=== PATIENT | female | born 1965 | race Caucasian/White ===

== ENCOUNTER 2021-07-07 09:47 | Outpatient (CLI) | payer BC, MEDICARE | END 2021-07-07 09:48 | disposition home or self-care (01) | LOC: CSHWCC 09:47 | PROVIDERS: ATTEND Nurse Practitioner Family | DX: T22.012D Burn of unspecified degree of left forearm, subsequent encounter (principal) | CPT/HCPCS: 99203; G0463 ==

== ENCOUNTER 2021-07-14 15:03 | Outpatient (CLI) | payer BC, MEDICARE | END 2021-07-14 15:04 | disposition home or self-care (01) | LOC: CSHWCC 15:03 | PROVIDERS: ATTEND Nurse Practitioner Family | DX: T80.89XD Other complications following infusion, transfusion and therapeutic injection, subsequent encounter (principal) | CPT/HCPCS: 99212; G0463 ==

== ENCOUNTER 2022-04-24 15:02 | Inpatient (IN) | payer BC, MEDICARE ==
[2022-04-24] MEDS ORDERED: Naloxone HCl 0.4 mg/ml Vial ONE (15:08)
[2022-04-24] MEDS ORDERED: Propofol 1,000 MG/100 ML VIAL IV ONE (15:25)
[2022-04-24 16:04] LABS: #Eosinphils 0.1 10x3/uL (0.0-0.5); #Monocytes 0.6 10x3/uL (0.0-1.1); #Neutrophils 7.6 10x3/uL (1.5-8.4); %Basophils 0.3 % (0.0-2.0); %Eosinophils 1.1 % (0.0-6.0); %Lymphocytes 13.6 % (18.0-47.0); %Monocytes 5.7 % (0.0-10.0); %Neutrophils 78.5 % (40.0-75.0); Hemoglobin 12.1 g/dL (12.0-15.5); Mean Corpuscular HGB CONC 33.3 g/dL (32.0-36.0); Mean Corpuscular Hemoglobin 33.2 pg (27.0-33.0); Mean Corpuscular Volume 99.7 fl (81.6-98.3); Platelet Count 215 10x3/uL (150-450); RBC Distribution Width 14.6 % (11.5-14.5); Red Blood Cell (RBC) Count 3.64 10x6/uL (3.90-5.03); White Blood Cell (WBC) Count 9.7 10x3/uL (3.5-10.5)
[2022-04-24 16:11] LABS: BHCG - Serum Negative (NEGATIVE); Pregs Control Background? CLEAR/WHITE (CLR/WHITE); Pregs Control Bar Appear? YES (CONTROL BAR)
[2022-04-24 16:18] LABS: ALT (SGPT) 56 U/L (8-55); AST (SGOT) 41 U/L (5-34); Albumin 3.9 g/dL (3.5-5.0); Alkaline Phosphatase 93 U/L (40-110); Anion Gap 16 mmol/L (10-20); BUN (Urea Nitrogen) 15 mg/dL (9.8-20.1); Bilirubin, Total 0.3 mg/dL (0.2-1.2); Calc. Creatinine Clearance 0 mL/min (70-130); Calcium 7.1 mg/dL (7.8-10.44); Carbon Dioxide 21 mmol/L (22-29); Chloride 106 mmol/L (98-107); Estimated GFR 92; Globulin 2.5 g/dL (2.4-3.5); Glucose 155 mg/dL (70-105); Potassium 3.7 mmol/L (3.5-5.1); Protein, Total 6.4 g/dL (6.0-8.3); Sodium 139 mmol/L (136-145)
[2022-04-24 16:18] LABS: Bilirubin Neg (Negative); Blood, Urine Negative (Negative); Clarity Clear (Clear); Glucose, Urine (Dipstick) Normal (Negative); Ketone, Urine Negative (Negative); Leukocyte Negative (Negative); Nitrite Negative (Negative); Protein, Urine (Dipstick) 15 mg/dl (Neg-Trace); Urobilinogen Normal mg/dL (Less than 2)
[2022-04-24 16:21] LABS: Base Excess (BEa) -0.3 mEq/L (-2.0 to +3.0); CO2 Tension 43.2 mmHg (35.0-45.0); Carboxyhemoglobin (COHb) 0.1 gm% (0.0-3.0); Hemoglobin (Hb) 13.3 g/dL (12.0-16.0); O2 Tension (PaO2), arterial 190.2 mmHg (80.0-100.0); Potassium - ABG Lab 3.8 mmol/L (3.70-5.30); Puncture Site RRA; pH, Arterial 7.38 (7.35-7.45)
[2022-04-24 16:27] LABS: Amphetamine Not Detected (NotDetected); Barbiturates Screen Not Detected (NotDetected); Benzodiazepine Screen Detected (NotDetected); Cocaine Metabolite Screen Not Detected (NotDetected); Methadone Not Detected (NotDetected); Methamphetamine Not Detected (NotDetected); Opiate Screen Detected (NotDetected); Oxycodone Screen Detected (NotDetected); Phencyclidine (PCP) Not Detected (NotDetected); THC/Cannabinoid Screen Not Detected (NotDetected); Tricyclic Screen Not Detected (NotDetected)
[2022-04-24 17:04] LABS: SARS-CoV-2 NAA Rapid Test Not Detected (NotDetected)
[2022-04-24 17:21] LABS: Alcohol Less than 10 mg/dL (Less than 10); Salicylate Less than 8.0 mg/dL (15.0-30.0)
[2022-04-24] MEDS ORDERED: Morphine 4 MG/ML VIAL SLOW IVP PRN (18:06)
[2022-04-24] MEDS: FENTANYL 2,000MCG/100-0.9%NACL 100 ML IVPB SCH (18:09)
[2022-04-24] MEDS ORDERED: DISCONTINUE PREVIOUS NARCOTIC PAIN MEDICATIONS AND BENZODIAZEPINES FS SCH (18:15)
[2022-04-24] MEDS ORDERED: Morphine 2 MG/ML VIAL SLOW IVP PRN (18:15)
[2022-04-24] MEDS ORDERED: Fentanyl BOLUS 250 ML IVPB PRN (18:15)
[2022-04-24] MEDS ORDERED: Propofol BOLUS 1,000 MG/100 ML VIAL IV PRN (18:15)
[2022-04-24] MEDS: Lorazepam 2 MG/ML VIAL SLOW IVP PRN (18:17)
[2022-04-24] MEDS: Propofol 1,000 MG/100 ML VIAL IV PRN ×2 (19:34→22:22)
[2022-04-24] MEDS ORDERED: Acetylcysteine 20% (200mg/mL) 15,000 MG in Dextrose 5% in Water 125 ML IV SCH (21:00)
[2022-04-24] MEDS ORDERED: Magnesium 2 GM/50 ML(in water) 2 GM in Premix Bag 1 BAG IVPB SCH (21:00)
[2022-04-24] MEDS ORDERED: Acetylcysteine 20% (200mg/mL) 5,000 MG in Dextrose 5% in Water 475 ML IV SCH (22:00)
[2022-04-25] MEDS: Propofol 1,000 MG/100 ML VIAL IV PRN ×7 (01:20→22:09)
[2022-04-25] MEDS: FENTANYL 2,000MCG/100-0.9%NACL 100 ML IVPB SCH ×3 (01:56→21:21)
[2022-04-25] MEDS: Lorazepam 2 MG/ML VIAL SLOW IVP PRN (01:56)
[2022-04-25] MEDS ORDERED: Acetylcysteine 20% (200mg/mL) 10,000 MG in Dextrose 5% in Water 950 ML IV SCH (02:00)
[2022-04-25 04:32] LABS: #Eosinphils 0.1 10x3/uL (0.0-0.5); #Monocytes 0.4 10x3/uL (0.0-1.1); #Neutrophils 4.3 10x3/uL (1.5-8.4); %Basophils 0.5 % (0.0-2.0); %Eosinophils 1.6 % (0.0-6.0); %Lymphocytes 21.5 % (18.0-47.0); %Monocytes 6.6 % (0.0-10.0); %Neutrophils 69.5 % (40.0-75.0); Hemoglobin 11.4 g/dL (12.0-15.5); Mean Corpuscular HGB CONC 33.2 g/dL (32.0-36.0); Mean Corpuscular Hemoglobin 32.8 pg (27.0-33.0); Mean Corpuscular Volume 98.6 fl (81.6-98.3); Mean Platelet Volume 11.5 fl (7.4-10.4); Platelet Count 203 10x3/uL (150-450); RBC Distribution Width 14.6 % (11.5-14.5); Red Blood Cell (RBC) Count 3.48 10x6/uL (3.90-5.03); White Blood Cell (WBC) Count 6.2 10x3/uL (3.5-10.5)
[2022-04-25 04:57] LABS: ALT (SGPT) 52 U/L (8-55); AST (SGOT) 41 U/L (5-34); Albumin 3.4 g/dL (3.5-5.0); Alkaline Phosphatase 79 U/L (40-110); Anion Gap 14 mmol/L (10-20); BUN (Urea Nitrogen) 10 mg/dL (9.8-20.1); Bilirubin, Total 0.4 mg/dL (0.2-1.2); Calc. Creatinine Clearance 147 mL/min (70-130); Carbon Dioxide 23 mmol/L (22-29); Chloride 106 mmol/L (98-107); Estimated GFR 101; Globulin 2.2 g/dL (2.4-3.5); Glucose 99 mg/dL (70-105); Potassium 3.7 mmol/L (3.5-5.1); Protein, Total 5.6 g/dL (6.0-8.3); Sodium 139 mmol/L (136-145)
[2022-04-25 05:07] LABS: Calcium 6.5 mg/dL (7.8-10.44)
[2022-04-25] MEDS: Calcium Gluconate 4.6 MEQ in Sodium Chloride 0.9% 100 ML IVPB SCH ×2 (05:25→06:34)
[2022-04-25] MEDS ORDERED: Rocuronium Bromide 10 MG/ML (10ML VIAL) ONE (06:00)
[2022-04-25] MEDS ORDERED: Enoxaparin Sodium 40 MG/0.4 ML SYRINGE SC SCH (09:00)
[2022-04-25] MEDS: Dexmedetomidine In 0.9 % NaCl 400 MCG in Premix Bag 1 BAG IVPB SCH ×3 (15:09→21:21)
[2022-04-25 16:49] LABS: ALT (SGPT) 48 U/L (8-55); AST (SGOT) 38 U/L (5-34); Acetaminophen Less than 10.0 mcg/mL (10.0-30.0); Albumin 3.3 g/dL (3.5-5.0); Alkaline Phosphatase 86 U/L (40-110); Anion Gap 13 mmol/L (10-20); BUN (Urea Nitrogen) 6 mg/dL (9.8-20.1); Bilirubin, Direct 0.2 mg/dL (0.1-0.3); Bilirubin, Total 0.5 mg/dL (0.2-1.2); Calc. Creatinine Clearance 154 mL/min (70-130); Calcium 7.1 mg/dL (7.8-10.44); Carbon Dioxide 24 mmol/L (22-29); Chloride 108 mmol/L (98-107); Estimated GFR 103; Globulin 2.2 g/dL (2.4-3.5); Glucose 103 mg/dL (70-105); Potassium 3.7 mmol/L (3.5-5.1); Protein, Total 5.5 g/dL (6.0-8.3); Sodium 141 mmol/L (136-145)
[2022-04-25] MEDS: Rivaroxaban 15 MG TAB PO SCH (21:21)
[2022-04-26] MEDS: Dexmedetomidine In 0.9 % NaCl 400 MCG in Premix Bag 1 BAG IVPB SCH ×3 (01:09→07:14)
[2022-04-26] MEDS: Propofol 1,000 MG/100 ML VIAL IV PRN (02:42)
[2022-04-26 04:12] LABS: ALT (SGPT) 48 U/L (8-55); AST (SGOT) 40 U/L (5-34); Albumin 3.4 g/dL (3.5-5.0); Alkaline Phosphatase 93 U/L (40-110); Anion Gap 14 mmol/L (10-20); BUN (Urea Nitrogen) 7 mg/dL (9.8-20.1); Bilirubin, Total 0.5 mg/dL (0.2-1.2); Calc. Creatinine Clearance 148 mL/min (70-130); Carbon Dioxide 22 mmol/L (22-29); Chloride 107 mmol/L (98-107); Estimated GFR 99; Globulin 2.5 g/dL (2.4-3.5); Glucose 96 mg/dL (70-105); Magnesium 1.8 mg/dL (1.6-2.6); Phosphorus 5.1 mg/dL (2.3-4.7); Potassium 4.2 mmol/L (3.5-5.1); Protein, Total 5.9 g/dL (6.0-8.3); Sodium 139 mmol/L (136-145)
[2022-04-26 04:13] LABS: #Eosinphils 0.1 10x3/uL (0.0-0.5); #Monocytes 0.6 10x3/uL (0.0-1.1); %Basophils 0.4 % (0.0-2.0); %Eosinophils 2.1 % (0.0-6.0); %Lymphocytes 28.1 % (18.0-47.0); %Monocytes 8.7 % (0.0-10.0); %Neutrophils 60.4 % (40.0-75.0); Hemoglobin 12.3 g/dL (12.0-15.5); Mean Corpuscular HGB CONC 33.5 g/dL (32.0-36.0); Mean Corpuscular Hemoglobin 32.5 pg (27.0-33.0); Mean Corpuscular Volume 97.1 fl (81.6-98.3); Mean Platelet Volume 11.9 fl (7.4-10.4); Platelet Count 182 10x3/uL (150-450); RBC Distribution Width 14.6 % (11.5-14.5); Red Blood Cell (RBC) Count 3.78 10x6/uL (3.90-5.03); White Blood Cell (WBC) Count 6.7 10x3/uL (3.5-10.5)
[2022-04-26] MEDS: Levothyroxine Sodium 75 MCG TAB PO SCH (06:07)
[2022-04-26] MEDS: Rivaroxaban 15 MG TAB PO SCH ×2 (07:58→20:27)
[2022-04-26] MEDS: Pantoprazole 40 MG VIAL IVP SCH (07:59)
[2022-04-26] MEDS ORDERED: LINACLOTIDE 72 MCG PO PRN (16:11)
[2022-04-26] MEDS: Lorazepam 2 MG/ML VIAL SLOW IVP PRN (20:27)
[2022-04-26] MEDS ORDERED: Calcium Carbonate 500 MG ChewTAB PO SCH (21:00)
[2022-04-27 06:25] LABS: #Eosinphils 0.1 10x3/uL (0.0-0.5); #Monocytes 0.4 10x3/uL (0.0-1.1); %Basophils 0.3 % (0.0-2.0); %Eosinophils 1.5 % (0.0-6.0); %Lymphocytes 23.8 % (18.0-47.0); %Monocytes 6.9 % (0.0-10.0); %Neutrophils 67.2 % (40.0-75.0); Hemoglobin 12.5 g/dL (12.0-15.5); Mean Corpuscular HGB CONC 31.9 g/dL (32.0-36.0); Mean Corpuscular Hemoglobin 32.6 pg (27.0-33.0); Mean Corpuscular Volume 102.1 fl (81.6-98.3); Mean Platelet Volume 11.8 fl (7.4-10.4); Platelet Count 204 10x3/uL (150-450); RBC Distribution Width 14.4 % (11.5-14.5); Red Blood Cell (RBC) Count 3.84 10x6/uL (3.90-5.03); White Blood Cell (WBC) Count 5.9 10x3/uL (3.5-10.5)
[2022-04-27 06:56] LABS: ALT (SGPT) 43 U/L (8-55); AST (SGOT) 41 U/L (5-34); Albumin 3.6 g/dL (3.5-5.0); Alkaline Phosphatase 112 U/L (40-110); Anion Gap 20 mmol/L (10-20); BUN (Urea Nitrogen) 15 mg/dL (9.8-20.1); Bilirubin, Total 0.8 mg/dL (0.2-1.2); Calc. Creatinine Clearance 147 mL/min (70-130); Calcium 7.5 mg/dL (7.8-10.44); Carbon Dioxide 22 mmol/L (22-29); Chloride 105 mmol/L (98-107); Estimated GFR 101; Globulin 2.7 g/dL (2.4-3.5); Glucose 57 mg/dL (70-105); Magnesium 1.8 mg/dL (1.6-2.6); Phosphorus 5.8 mg/dL (2.3-4.7); Potassium 4.8 mmol/L (3.5-5.1); Protein, Total 6.3 g/dL (6.0-8.3); Sodium 142 mmol/L (136-145)
[2022-04-27] MEDS: Levothyroxine Sodium 75 MCG TAB PO SCH (07:27)
[2022-04-27] MEDS: Rivaroxaban 15 MG TAB PO SCH ×2 (10:06→21:48)
[2022-04-27] MEDS: Citalopram 20 MG TAB PO SCH (10:06)
[2022-04-27] MEDS: Pantoprazole 40 MG VIAL IVP SCH (10:06)
[2022-04-28] MEDS: Levothyroxine Sodium 75 MCG TAB PO SCH (08:37)
[2022-04-28] MEDS: Rivaroxaban 15 MG TAB PO SCH ×2 (08:37→22:22)
[2022-04-28] MEDS: Citalopram 20 MG TAB PO SCH (08:37)
[2022-04-28 11:40] VITALS: BMI 40.1
[2022-04-28] MEDS: Sodium Chloride 0.9% 1,000 ML IV SCH (16:10)
[2022-04-28 16:16] LABS: #Eosinphils 0.1 10x3/uL (0.0-0.5); #Monocytes 0.4 10x3/uL (0.0-1.1); #Neutrophils 3.7 10x3/uL (1.5-8.4); %Basophils 0.4 % (0.0-2.0); %Eosinophils 1.6 % (0.0-6.0); %Lymphocytes 18.4 % (18.0-47.0); %Monocytes 7.4 % (0.0-10.0); Hemoglobin 13.7 g/dL (12.0-15.5); Mean Corpuscular HGB CONC 33.4 g/dL (32.0-36.0); Mean Corpuscular Hemoglobin 32.9 pg (27.0-33.0); Mean Corpuscular Volume 98.3 fl (81.6-98.3); Mean Platelet Volume 11.4 fl (7.4-10.4); Platelet Count 203 10x3/uL (150-450); RBC Distribution Width 13.8 % (11.5-14.5); Red Blood Cell (RBC) Count 4.17 10x6/uL (3.90-5.03); White Blood Cell (WBC) Count 5.1 10x3/uL (3.5-10.5)
[2022-04-28 16:32] LABS: ALT (SGPT) 35 U/L (8-55); AST (SGOT) 31 U/L (5-34); Albumin 3.9 g/dL (3.5-5.0); Alkaline Phosphatase 105 U/L (40-110); Anion Gap 16 mmol/L (10-20); BUN (Urea Nitrogen) 9 mg/dL (9.8-20.1); Bilirubin, Total 0.5 mg/dL (0.2-1.2); Calc. Creatinine Clearance 174 mL/min (70-130); Calcium 7.4 mg/dL (7.8-10.44); Carbon Dioxide 23 mmol/L (22-29); Chloride 106 mmol/L (98-107); Estimated GFR 107; Globulin 2.8 g/dL (2.4-3.5); Glucose 93 mg/dL (70-105); Potassium 3.8 mmol/L (3.5-5.1); Protein, Total 6.7 g/dL (6.0-8.3); Sodium 141 mmol/L (136-145)
[2022-04-28] MEDS ORDERED: rOPINIRole HCl 1 MG TAB PO SCH (22:15)
[2022-04-29] MEDS: Sodium Chloride 0.9% 1,000 ML IV SCH ×2 (02:56→08:36)
[2022-04-29] MEDS: Levothyroxine Sodium 75 MCG TAB PO SCH (06:29)
[2022-04-29] MEDS: Citalopram 20 MG TAB PO SCH (08:35)
[2022-04-29] MEDS: Rivaroxaban 15 MG TAB PO SCH ×3 (08:35→21:33)
[2022-04-30] MEDS: Sodium Chloride 0.9% 1,000 ML IV SCH ×3 (05:09→14:58)
[2022-04-30] MEDS: Levothyroxine Sodium 75 MCG TAB PO SCH (07:04)
[2022-04-30] MEDS: Rivaroxaban 15 MG TAB PO SCH (08:58)
[2022-04-30] MEDS: Citalopram 20 MG TAB PO SCH (08:58)
[2022-04-30] MEDS ORDERED: Pramipexole Di-HCl 0.25 MG TAB PO SCH ×2 (13:00→21:00)
[2022-04-30 16:11] VITALS: BP 110/64; TEMP 97.5
== END 2022-04-30 18:14 | DRG 917 ==
LOC: SUATTDRO 15:02 → CSHERS 15:02 → CSHICU 17:09 → CSHTELE 04-26 17:31
PROVIDERS: ADMIT Internal Medicine; ATTEND Internal Medicine
PROC: 0BH17EZ Insertion of Endotracheal Airway into Trachea, Via Natural or Artificial Opening (ICD-10-PCS; principal; 2022-04-24)
PROC: 5A1945Z Respiratory Ventilation, 24-96 Consecutive Hours (ICD-10-PCS; 2022-04-24)
PROC: 0T9B70Z Drainage of Bladder with Drainage Device, Via Natural or Artificial Opening (ICD-10-PCS; 2022-04-24)
DX: T39.1X2A Poisoning by 4-Aminophenol derivatives, intentional self-harm, initial encounter (principal); J96.01 Acute respiratory failure with hypoxia; M32.9 Systemic lupus erythematosus, unspecified; T14.91XA Suicide attempt, initial encounter; E03.9 Hypothyroidism, unspecified; G62.9 Polyneuropathy, unspecified; Z20.822 Contact with and (suspected) exposure to COVID-19; F60.3 Borderline personality disorder; F31.9 Bipolar disorder, unspecified; Z88.6 Allergy status to analgesic agent; Z88.1 Allergy status to other antibiotic agents; Z88.8 Allergy status to other drugs, medicaments and biological substances; Z91.09 Other allergy status, other than to drugs and biological substances; Z79.899 Other long term (current) drug therapy; Z79.890 Hormone replacement therapy; Z90.49 Acquired absence of other specified parts of digestive tract; Z98.84 Bariatric surgery status; Z91.51 Personal history of suicidal behavior; Z78.1 Physical restraint status; Z87.442 Personal history of urinary calculi; Z86.718 Personal history of other venous thrombosis and embolism; Z86.711 Personal history of pulmonary embolism
CPT/HCPCS: 31500; 36415; 36416; 36600; 51702; 70450; 71045; 80053; 80143; 80306; 80307; 81003; 82805; 83605; 83735; 84100; 84146; 84443; 84484; 84703; 85025; 86850; 86900; 86901; 87040; 87086; 93005; 93010; 94002; 94003; 94760; 94762; 96374; C9113; J0132; J0610; J1650; J2060; J2310; J2704; J3475; J3490; J7070

== ENCOUNTER 2024-03-08 03:59 | Emergency (ER) | payer BC, MEDICARE, OTHER ==
[2024-03-08] MEDS ORDERED: Magnesium 2 GM/50 ML BAG (IN WATER) ONE (04:07)
[2024-03-08] MEDS ORDERED: fentaNYL 50 mcg/mL 1 mL Vial ONE (04:07)
[2024-03-08] MEDS ORDERED: Ketorolac Tromethamine 30 MG (1 mL) VIAL ONE (04:10)
[2024-03-08] MEDS ORDERED: tiZANidine HCl 4 MG TAB PO SCH (04:30)
[2024-03-08 04:46] LABS: #Basophils 0.06 10x3/uL (0.0-0.2); #Eosinophils 0.16 10x3/uL (0.0-0.5); #Monocytes 0.62 10x3/uL (0.0-1.1); #Neutrophils 6.43 10x3/uL (1.5-8.4); %Basophils 0.6 % (0.0-2.0); %Eosinophils 1.6 % (0.0-6.0); %Lymphocytes 29.1 % (18.0-47.0); %Neutrophils 62.4 % (40.0-75.0); Hematocrit 45.7 % (34.9-44.5); Hemoglobin 15.1 g/dL (12.0-15.5); Mean Corpuscular Hemoglobin 32.9 pg (27.0-33.0); Mean Corpuscular Volume 99.6 fL (81.6-98.3); Mean Platelet Volume 11.5 fL (7.4-10.4); Platelet Count 292 10x3/uL (150-450); RBC Distribution Width 14.6 % (11.5-14.5); Red Blood Cell (RBC) Count 4.59 10x6/uL (3.90-5.03); White Blood Cell (WBC) Count 10.3 10x3/uL (3.5-10.5)
[2024-03-08 04:57] LABS: Actual Bicarbonate (HCO3v) 27.2 mEq/L (22-28); Analyzer IN Cardio CS ER; Base Excess 2.2 mEq/L (-2 - +2); Calcium, Ionized (venous) 0.86 mmol/L (1.16-1.32); Chloride (VBG) 96 mmol/L (98-106); Hematocrit-VBG 49 % (36.0-47.0); Hemoglobin (Hb) 16.5 g/dL (11.7-16.0); Potassium (VBG) 4.73 mmol/L (3.70-5.30); Puncture Site Other Site; RapidComm Collect By lab; Sodium 142 mmol/L (133-146); pH (venous) 7.413 (7.32-7.43)
[2024-03-08 05:00] LABS: ALT (SGPT) 54 U/L (8-55); AST (SGOT) 52 U/L (5-34); Albumin 4.2 g/dL (3.5-5.0); Alkaline Phosphatase 106 U/L (40-110); Anion Gap 24 mmol/L (10-20); BUN (Urea Nitrogen) 17 mg/dL (9.8-20.1); Bilirubin, Total 0.5 mg/dL (0.2-1.2); CK (CPK) 191 U/L (29-168); Calc. Creatinine Clearance 0 mL/min (70-130); Calcium 8.7 mg/dL (7.8-10.44); Carbon Dioxide 26 mmol/L (22-29); Chloride 97 mmol/L (98-107); Estimated GFR 51; Globulin 3.9 g/dL (2.4-3.5); Glucose 135 mg/dL (70-105); Protein, Total 8.1 g/dL (6.0-8.3); Sodium 142 mmol/L (136-145)
[2024-03-08] MEDS ORDERED: Calcium Gluc 4.6 MEQ/10 ML (100 MG/ML) ONE ×2 (05:05→05:06)
[2024-03-08] MEDS ORDERED: Cyclobenzaprine 10 MG TAB ONE (05:05)
== END 2024-03-08 05:49 | disposition home or self-care (01) ==
LOC: CSHERS 03:59
DX: E83.51 Hypocalcemia (principal); R25.2 Cramp and spasm; I10 Essential (primary) hypertension
CPT/HCPCS: 80053; 82550; 82805; 83735; 85025; 93005; 96374; 96375; J0612; J1885; J3010; J3475

== ENCOUNTER 2024-03-09 06:54 | Emergency (ER) | payer OTHER ==
[2024-03-09 07:22] LABS: #Basophils 0.03 10x3/uL (0.0-0.2); #Eosinophils 0.12 10x3/uL (0.0-0.5); #Monocytes 0.46 10x3/uL (0.0-1.1); #Neutrophils 5.14 10x3/uL (1.5-8.4); %Basophils 0.4 % (0.0-2.0); %Eosinophils 1.6 % (0.0-6.0); %Monocytes 6.1 % (0.0-10.0); %Neutrophils 68.4 % (40.0-75.0); Hematocrit 44.1 % (34.9-44.5); Hemoglobin 14.2 g/dL (12.0-15.5); Mean Corpuscular HGB CONC 32.2 g/dL (32.0-36.0); Mean Corpuscular Hemoglobin 32.4 pg (27.0-33.0); Mean Corpuscular Volume 100.7 fL (81.6-98.3); Mean Platelet Volume 11.4 fL (7.4-10.4); Platelet Count 266 10x3/uL (150-450); RBC Distribution Width 14.5 % (11.5-14.5); Red Blood Cell (RBC) Count 4.38 10x6/uL (3.90-5.03); White Blood Cell (WBC) Count 7.5 10x3/uL (3.5-10.5)
[2024-03-09] MEDS ORDERED: Acetaminophen 500 MG TAB ONE (07:32)
[2024-03-09] MEDS ORDERED: methylPREDNISolone Sod Succ/PF 125 MG/2 ML VIAL ONE (07:32)
[2024-03-09 07:36] LABS: ALT (SGPT) 45 U/L (8-55); AST (SGOT) 46 U/L (5-34); Alkaline Phosphatase 103 U/L (40-110); Anion Gap 20 mmol/L (10-20); BUN (Urea Nitrogen) 17 mg/dL (9.8-20.1); Bilirubin, Total 0.6 mg/dL (0.2-1.2); Calc. Creatinine Clearance 0 mL/min (70-130); Calcium 8.5 mg/dL (7.8-10.44); Carbon Dioxide 27 mmol/L (22-29); Chloride 100 mmol/L (98-107); Estimated GFR 74; Globulin 2.7 g/dL (2.4-3.5); Glucose 110 mg/dL (70-105); Potassium 4.5 mmol/L (3.5-5.1); Protein, Total 6.7 g/dL (6.0-8.3); Sodium 142 mmol/L (136-145); Troponin I Less than 0.010 ng/mL (< 0.028)
[2024-03-09] MEDS ORDERED: Ipratropium/Albuterol 3 ML NEB ONE (07:38)
[2024-03-09 07:46] LABS: Magnesium 2.3 mg/dL (1.6-2.6)
[2024-03-09 07:47] LABS: PTT 27.4 sec (22.0-33.0); Prothrombin Time 10.5 sec (9.5-12.1)
[2024-03-09] MEDS ORDERED: LevoFLOXacin 750 mg/D5W 150 ml Premix Bag ONE (08:09)
[2024-03-09] MEDS ORDERED: Ketorolac Tromethamine 30 MG (1 mL) VIAL ONE (08:43)
== END 2024-03-09 09:00 | disposition home or self-care (01) ==
LOC: CSHERS 06:54
DX: J18.0 Bronchopneumonia, unspecified organism (principal); Z55.6 Problems related to health literacy; I10 Essential (primary) hypertension; Z86.718 Personal history of other venous thrombosis and embolism; Z86.711 Personal history of pulmonary embolism
CPT/HCPCS: 36415; 71045; 80053; 83605; 83735; 83880; 84484; 85025; 85610; 85730; 87040; 87426; 93005; 93010; 94640; 94760; 96365; 96366; 96375; J1885; J1956; J2919; J7620

== ENCOUNTER 2024-04-07 07:59 | Emergency (ER) | payer MEDICARE, OTHER | END 2024-04-07 09:35 | disposition home or self-care (01) | LOC: CSHERS 07:59 | DX: M79.642 Pain in left hand (principal); M25.532 Pain in left wrist; I10 Essential (primary) hypertension; Z55.0 Illiteracy and low-level literacy | CPT/HCPCS: 99283 ==

== ENCOUNTER 2024-04-09 09:02 | Emergency (ER) | payer MEDICAID, MEDICARE, OTHER ==
[2024-04-09] MEDS ORDERED: Acetaminophen/Codeine 30-300mg Tablet ONE (09:50)
== END 2024-04-09 10:20 | disposition home or self-care (01) ==
LOC: CSHERS 09:02
DX: S92.351A Displaced fracture of fifth metatarsal bone, right foot, initial encounter for closed fracture (principal); I10 Essential (primary) hypertension; W19.XXXA Unspecified fall, initial encounter
CPT/HCPCS: 99283

== ENCOUNTER 2024-05-11 11:39 | Emergency (ER) | payer MEDICARE, OTHER | END 2024-05-11 12:31 | disposition home or self-care (01) | LOC: CSHERS 11:39 | DX: J02.9 Acute pharyngitis, unspecified (principal); I10 Essential (primary) hypertension | CPT/HCPCS: 87081; 87430; 99283 ==

== ENCOUNTER 2024-05-22 11:03 | Emergency (ER) | payer OTHER ==
[2024-05-22] MEDS ORDERED: Dexamethasone 10 MG/ML VIAL ONE (11:13)
[2024-05-22] MEDS ORDERED: Ketorolac Tromethamine 30 MG (1 mL) VIAL ONE (11:13)
[2024-05-22] MEDS ORDERED: HYDROcodone/Acetaminophen 5/325 mg Tablet ONE (12:29)
== END 2024-05-22 12:37 | disposition home or self-care (01) ==
LOC: CSHERS 11:03
DX: M32.9 Systemic lupus erythematosus, unspecified (principal); M25.511 Pain in right shoulder; M25.512 Pain in left shoulder; M54.2 Cervicalgia; M25.562 Pain in left knee; M25.561 Pain in right knee; I10 Essential (primary) hypertension
CPT/HCPCS: J1100; J1885; 96372; 99283

== ENCOUNTER 2024-12-22 17:09 | Emergency (ER) | payer OTHER ==
[2024-12-22 20:29] LABS: #Basophils Less than 0.03 10x3/uL (0.0-0.2); #Eosinophils 0.08 10x3/uL (0.0-0.5); #Monocytes 0.48 10x3/uL (0.0-1.1); #Neutrophils 4.37 10x3/uL (1.5-8.4); %Basophils 0.3 % (0.0-2.0); %Eosinophils 1.2 % (0.0-6.0); %Lymphocytes 23.8 % (18.0-47.0); %Monocytes 7.4 % (0.0-10.0); %Neutrophils 67.1 % (40.0-75.0); Hematocrit 39.4 % (34.9-44.5); Hemoglobin 12.8 g/dL (12.0-15.5); Mean Corpuscular Hemoglobin 32.1 pg (27.0-33.0); Mean Corpuscular Volume 98.7 fL (81.6-98.3); Platelet Count 177 10x3/uL (150-450); Red Blood Cell (RBC) Count 3.99 10x6/uL (3.90-5.03); White Blood Cell (WBC) Count 6.51 10x3/uL (3.5-10.5)
[2024-12-22 20:45] LABS: ALT (SGPT) 51 U/L (Less than 34); AST (SGOT) 47 U/L (11-34); Albumin 4.0 g/dL (3.1-4.5); Alkaline Phosphatase 104 U/L (40-110); Anion Gap 15 mmol/L (10-20); BUN (Urea Nitrogen) 14 mg/dL (9.8-20.1); Bilirubin, Total 0.6 mg/dL (0.3-1.2); Calc. Creatinine Clearance 0 mL/min (70-130); Calcium 8.6 mg/dL (7.8-10.44); Carbon Dioxide 27 mmol/L (22-29); Chloride 101 mmol/L (98-107); Globulin 3.3 g/dL (2.4-3.5); Glucose 88 mg/dL (70-105); Magnesium 2.1 mg/dL (1.6-2.6); Potassium 3.9 mmol/L (3.5-5.1); Sodium 139 mmol/L (136-145)
== END 2024-12-22 20:25 | disposition home or self-care (01) ==
LOC: CSHERS 17:09
DX: M25.572 Pain in left ankle and joints of left foot (principal); I11.0 Hypertensive heart disease with heart failure; I50.9 Heart failure, unspecified; X50.9XXA Other and unspecified overexertion or strenuous movements or postures, initial encounter; Y93.01 Activity, walking, marching and hiking; Y92.009 Unspecified place in unspecified non-institutional (private) residence as the place of occurrence of the external cause
CPT/HCPCS: 36415; 80053; 83735; 85025; 99283

== ENCOUNTER 2025-05-06 10:32 | Emergency (ER) | payer OTHER, MEDICAID ==
[2025-05-06] MEDS ORDERED: Ketorolac Tromethamine 30 MG (1 mL) VIAL ONE (11:16)
== END 2025-05-06 12:10 | disposition home or self-care (01) ==
LOC: CSHERS 10:32
DX: S43.402A Unspecified sprain of left shoulder joint, initial encounter (principal); I10 Essential (primary) hypertension; Z86.711 Personal history of pulmonary embolism; Z86.718 Personal history of other venous thrombosis and embolism; X50.1XXA Overexertion from prolonged static or awkward postures, initial encounter
CPT/HCPCS: 73030; J1885; 96372; 99283